=== PATIENT | female | born 1965 | race Caucasian/White ===

== ENCOUNTER 2017-11-03 10:11 | Emergency (ER) | payer SELFPAY ==
[2017-11-03 10:13] VITALS: BP 150/77; PULSE 91; RESP 16; TEMP 97.9; O2SAT 96
[2017-11-03] MEDS ORDERED: NAPROXEN 500 MG TAB PO ONE (11:45)
[2017-11-03] MEDS ORDERED: NAPR500T2 PO (11:51)
--- NOTE | 2017-11-03 11:51 | PD ---
HPI Chief Complaint: Pain: Acute or Chronic Time Seen by Provider: 10:26 Travel History International Travel<30 days: No Contact w/Intl Traveler<30days: No Traveled to known affect area: No History of Present Illness HPI 52-year-old woman with left leg pain ongoing for couple weeks. Worsening over the past several days. Leg buckled and gave out on her yesterday. She called herself and did not fall. Pain rating from the left thigh, down below the knee , to the left calf. She otherwise had been feeling well and healthy prior to this. Lots of social complaints as well. History of sciatica in the past. No other complaints. History Past Medical History Narrative Medical Sciatica Social History Tobacco Use: No Allergies-Medications (Allergen,Severity, Reaction): Coded Allergies: No Known Allergies (Verified Allergy, Unknown, 11/03/17) Review of Systems Except as stated in HPI: all other systems reviewed are Neg Physical Exam Narrative GENERAL: Obese 52-year-old squat woman, no acute distress. Texting on phone. SKIN: Warm and dry. CARDIOVASCULAR: Warm and well perfused. RESPIRATORY: Normal rate and effort. MUSCULOSKELETAL: Examination of the left leg reveals obese laser otherwise grossly normal in appearance. She has diffuse complaints of tenderness throughout the leg and the knee. Full range of motion. Positive straight leg raise on the left. No obvious instability NEUROLOGICAL: Awake and alert. No gross deficits. Data Data Last Documented VS Vital Signs Date Time Temp Pulse Resp B/P (MAP) Pulse Ox O2 Delivery O2 Flow Rate FiO2 11/03/17 10:13 97.9 91 16 150/77 (101) 96 Orders Orders Naproxen (Naprosyn) (11/03/17 11:45) [facility] Medical Decision Making Medical Screen Exam Complete: Yes Emergency Medical Condition: Yes Differential Diagnosis Sciatica, back pain, DVT, knee problems, other Narrative Course Medical decision making Is a 52-year-old woman presents emerged from with left leg pain, likely sciatica , looks well, little bit sad with lots of social complaints tied into this. Recommend NSAIDs, outpatient follow-up. Counseled that return to normal functional status may take a couple weeks. Diagnosis Primary Impression: Sciatica Patient Instructions: General Instructions Additional Instructions: Follow-up with your primary physician if you not well in 1-2 weeks. Take naproxen as prescribed. Return to the emergency department for any worsening pain, numbness, tingling, weakness, or any other new or worsening symptoms. Med/Other Pt SpecificInfo: Prescription(s) given Scripts Naproxen (Naproxen) 500 Mg Tab 500 MG PO BID, #28 TAB 0 Refills Prov: Ortega Cool MD 11/03/17 Disposition: 01 DISCHARGE HOME Condition: Stable Ortega Cool MD November 03, 2017 11:51
== END 2017-11-03 12:20 | disposition home or self-care (01) ==
LOC: NEPD 10:11
DX: M54.30 Sciatica, unspecified side (principal)
CPT/HCPCS: 99283